=== PATIENT | female | born 1940 | race Caucasian/White ===

== ENCOUNTER → 2020-04-27 | Outpatient (CLI) | payer MEDICARE ==
--- NOTE | 2020-04-28 04:35 | RAD ---
Study: XR LUMBAR SPINE 2-3V Indication: Back pain. Comparison: None. Findings: The last well-formed disc space is designated L5-S1. Underdeveloped ribs at T12. Augmented T12 compression deformity. Junctional kyphosis across T11-T12. No significant lumbar verteb ral body height loss with mild chronic appearing endplate concavity at L5. Grade 1 anterolisthesis of L4 on L5. No advanced disc space narrowing throughout the lumbar spine. Multilevel facet arthrosis. Diffuse osteopenia. Vascular calcifications. Impression: 1. Noting osteopenia, no acute fracture. 2. 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 3. Grade 1 anterolisthesis of L4 on L5. Varying extent of facet arthrosis at all imaged levels. No ad vanced disc space collapse. Electronically signed by: AMRITA MCCLENDON MD (04/28/2020 4:32 AM) [facility]
== END ==
LOC: DXRAD 15:12
PROVIDERS: ATTEND Family Medicine
DX: M85.88 Other specified disorders of bone density and structure, other site (principal); M43.16 Spondylolisthesis, lumbar region; M43.8X4 Other specified deforming dorsopathies, thoracic region; M40.294 Other kyphosis, thoracic region; M12.88 Other specific arthropathies, not elsewhere classified, other specified site
CPT/HCPCS: 72100